=== PATIENT | male | born 1970 | race African-American/Black ===

== ENCOUNTER 2022-02-24 10:49 | Outpatient (REF) | payer MEDICARE, BC, SELFPAY ==
[2022-02-24 14:05] LABS: Hematocrit 41.9 % (42.0-52.0); Hemoglobin 14.5 g/dl (14.0-18.0); Mean Corpuscular HGB Conc 34.6 g/dl (31.0-36.0); Mean Corpuscular Hemoglobin 31.7 pg (27.0-33.0); Mean Corpuscular Volume 91.5 fL (80.0-98.0); Platelet Count 200 X10*3/uL (160-400); Red Blood Count 4.58 X10*6/uL (4.60-5.80); Red Cell Distribution Width 12.3 % (11.0-16.0)
[2022-02-24 14:24] LABS: Alanine Aminotransferase 27 U/L (0-40); Albumin Level 4.3 g/dL (3.5-5.0); Alkaline Phosphatase 68 U/L (39-117); Anion Gap 11 (12-20); Aspartate Amino Transferase 29 U/L (5-37); Bilirubin Total 0.6 mg/dL (0.0-1.0); Blood Urea Nitrogen 13 mg/dL (9-16); Calcium 10.1 mg/dL (8.4-10.2); Carbon Dioxide 29 mmol/L (22-29); Chloride 101 mmol/L (96-108); Cholesterol 218 mg/dL; Estimated Glomerular Filt Rate > 60; Glucose Fasting 97 mg/dL (60-99); HDL Cholesterol 56 mg/dL; LDL Cholesterol Calculated 148 mg/dl; Potassium 5.1 mmol/L (3.3-5.1); Sodium 136 mmol/L (135-145); Total Protein 8.7 g/dL (6.5-8.0); Triglycerides 74 mg/dL
[2022-02-24 14:40] LABS: Prostate Specific Antigen Scr 0.29 ng/mL (<0.05-4.0)
== END 2022-02-24 10:50 | disposition home or self-care (01) ==
LOC: HO.HMGCLDS 10:49
PROVIDERS: PCP Internal Medicine; Visit Provider Internal Medicine
DX: Z00.00 Encounter for general adult medical examination without abnormal findings (principal); Z12.5 Encounter for screening for malignant neoplasm of prostate
CPT/HCPCS: 36415; 80053; 80061; 84153; 85027

== ENCOUNTER → 2022-04-26 15:05 | Outpatient (BNVA) | payer MEDICARE, BC, SELFPAY | PROVIDERS: PCP Internal Medicine; Visit Provider Nurse Practitioner | DX: Z01.818 Encounter for other preprocedural examination (principal) | CPT/HCPCS: 99202 ==

== ENCOUNTER 2022-08-14 11:35 | Day surgery (SDC) | payer MEDICARE, BC, SELFPAY ==
[2022-08-08 13:55] VITALS: BMI 40.3
--- NOTE | 2022-08-11 08:35 | P.CONAN_ITS ---
Documented by User: Martine Man NP 08/11/22 08:36 HPI - Anesthesia Eval Consult details Narrative: 51yo M for Colonoscopy PMFSH Active Problems Active Problems: All Active Problems (Updated 04/27/22 @ 13:37 by AYLEEN Urban) Pre-op exam (Acute) Hyperlipidemia (Acute) Shoulder pain, left (Acute) Neck pain, chronic (Acute) Vitreous floaters of left eye (Acute) Annual physical exam (Acute) Obesity (Acute) Hx of foot surgery (Acute) Past Medical History Medical History (Updated 04/27/22 @ 13:37 by AYLEEN Urban) Annual physical exam Bilateral shoulder region arthritis Degenerative arthritis Hyperlipidemia Lumbar radiculopathy Neck pain, chronic Neuropathy Non-Hodgkin lymphoma in remission Obesity Overweight Shoulder pain, left Thoracic radiculopathy Vitreous floaters of left eye Family History Family History Father Diabetes mellitus Mother HTN (hypertension) Brother No problems noted. Brother No problems noted. Brother No problems noted. Brother No problems noted. Sister No problems noted. Surgical History Surgical History (Updated 04/26/22 @ 15:12 by ELLIOT Sotelo) History of esophagogastroduodenoscopy (EGD) Hx of foot surgery No pertinent past surgical history Social History Social History Cigarettes Per Day: 3 Years Smoked: 2 Use of substances other than those prescribed or required for medical reasons: No Advance Directives: No Advance Directives Information Provided: Yes Meds Allergies Allergy/AdvReac Type Severity Reaction Status Date / Time No Known Allergies Allergy Verified 04/26/22 15:11 Exam Exam Date and Time: August 11, 2022 0835 Height,Weight and Vital Signs: Height 5 ft 4 in Weight 106.594 kg Pertinent Lab Results Pertinent Lab Results: Laboratory Tests 02/24/22 02/24/22 10:58 10:58 WBC 5.0 Hgb 14.5 Hct 41.9 L Plt Count 200 Sodium 136 Potassium 5.1 Chloride 101 Carbon Dioxide 29 BUN 13 Creatinine 0.86 Assessment and Plan Assessment Anesthesia Assessment: Chart Reviewed Documented by User: Temitope Cheek MD 08/14/22 12:15 [facility] Past Medical History Medical History (Updated 04/27/22 @ 13:37 by AYLEEN Urban) Annual physical exam Bilateral shoulder region arthritis Degenerative arthritis Hyperlipidemia Lumbar radiculopathy Neck pain, chronic Neuropathy Non-Hodgkin lymphoma in remission Obesity Overweight Shoulder pain, left Thoracic radiculopathy Vitreous floaters of left eye Family History Family History Father Diabetes mellitus Mother HTN (hypertension) Brother No problems noted. Brother No problems noted. Brother No problems noted. Brother No problems noted. Sister No problems noted. Surgical History Surgical History (Updated 04/26/22 @ 15:12 by ELLIOT Sotelo) History of esophagogastroduodenoscopy (EGD) Hx of foot surgery No pertinent past surgical history History of Problems with Anesthesia: No Social History Social History Cigarettes Per Day: 3 Years Smoked: 2 Use of substances other than those prescribed or required for medical reasons: No Advance Directives: No Advance Directives Information Provided: Yes Meds Allergies Allergy/AdvReac Type Severity Reaction Status Date / Time No Known Allergies Allergy Verified 04/26/22 15:11 Exam Airway Mallampati Class: III TM Dist: >3cm Neck ROM: Full Loose/Missing/Broken Teeth: No Heart: RRR Lungs: CTA Assessment and Plan Assessment Anesthesia Assessment: Anesthesia Plan Discussed Final Anesthetic Review History of Problems with Anesthesia: No NPO: Yes ASA Class: III Final Preanesthetic Review: Meds/Allgs Chart Reviewed, Consent Obtained/Reviewed and Anes Risks/Benef Reviewed Patient Risk: Intermediate Procedure Risk: Low Anesthetic Plan Anesthetic Plan: MAC: Disposition: Standard PACU
[2022-08-14 12:10] VITALS: BP 142/80; PULSE 88; RESP 16; TEMP 36.2; O2SAT 96
[2022-08-14] MEDS: Lactated Ringers 1,000 ML 100 ML IVCONT (12:12)
--- NOTE | 2022-08-14 12:26 | MHC.SHP ---
Pre-Procedural Eval Section A Date of Service: 08/14/22 The patient is an INPATIENT: No The History & Physical has been completed within 30 days and I have reviewed it.: No Section B Chief Complaint: screening Details of Present Illness: COLON CANCER SCREEN Relevant Family History (Specify if Yes): No Present Medications: see Short Stay Collaborative assessment Medical History: Significant History (History of non-Hodgkin's lymphoma High cholesterol Lumbar cervical and thoracic radiculopathy Floaters Neuropathy) History of Previous Operations: Relevant previous surgery/procedure and date(s) (History of esophagogastroduodenoscopy (EGD) Hx of foot surgery No pertinent past surgical history) Allergies: Allergies Allergy/AdvReac Type Severity Reaction Status Date / Time No Known Allergies Allergy Verified 04/26/22 15:11 Review of Systems Sugical H&P ROS: Negative: Constitution, Cardiovascular, Respiratory and Gastrointestinal Exam Surgical H&P Exam: Normal: Heart, Normal: Lungs, Normal: Extremities and Normal: Abdomen Plan Diagnosis/Plan: Unchanged I have reviewed the history and physical and performed a pertinent physical examination on my patient. No changes have occurred unless specified.
--- NOTE | 2022-08-14 12:32 | PM.OP ---
Brief Operative Note Date of Service: 08/14/22 Pre-op diagnosis: COLON CANCER SCREENING Post-op diagnosis: other ( colon polyps, diverticulosis, hemorrhoids) Procedure: COLONOSCOPY TO CECUM WITH BIOPSIES AND SNARE POLYPECTOMY Surgeon: Harmony Chanel MD Anesthesia: MAC Was an Correctional Program Officer used for this Procedure?: Yes Correctional Program Officer: Loyda Gomez Estimated blood loss (mL): 0 Pathology: other (A. ascending colon polyp B. transverse colon polyp) Condition: stable Disposition: PACU
--- NOTE | 2022-08-14 12:32 | W.PM.OPN ---
Operative Note Operative Note Date of Service: 08/14/22 Narrative: Pre-op diagnosis: COLON CANCER SCREENING Post-op diagnosis:?other ( colon polyps, diverticulosis, hemorrhoids) Procedure: COLONOSCOPY TO CECUM WITH BIOPSIES AND SNARE POLYPECTOMY Surgeon: Harmony Chanel MD Anesthesia:?MAC COLONOSCOPY TILL CECUM WITH BIOPSIES AND SNARE POLYPECTOMY Consent: Indications for the procedure and potential complications of bleeding, perforation, reaction to medications and missed diagnosis were discussed with the patient and informed consent was obtained. Instrument: Olympus PCF H 190 L variable stiffness pediatric colonoscope Monitoring: Vital signs and clinical assessment, intermittent blood pressure monitoring, continuous EKG monitoring, Pulse oximetry and Carbon Dioxide monitoring were done throughout the procedure. Colon withdrawl time was 17 minutes. Procedure: The patient was placed in the left lateral decubitis position and pre-procedure medications were administered. After a digital rectal examination of the ano-rectum, the video colonoscope was inserted into the rectum and advanced through the colon to the cecum. The colonoscope was slowly withdrawn in a retrograde panoramic fashion and the colon mucosa was carefully examined including a retroflexed view of the rectum. Findings and interventions are described below. Procedure Difficulty: Without difficulty Findings: Terminal Ileum: Not evaluated Cecum: Normal Ascending Colon: A 3-4 mm sessile polyp in the proximal AC removed with a cold bx Transverse Colon: A 7-8 mm sessile polyp in the distal TC removed with a cold snare. Descending Colon: Moderate diverticulosis Sigmoid Colon: Moderate diverticulosis Rectum: Normal Ano-rectum: Moderate internal hemorrhoids Colon preparation: Good Impression and Post Procedure Diagnosis: Colonoscopy Findings: Two small polyps removed Moderate diverticulosis seen in the left colon Moderate hemorrhoids on retroflexed exam. Plan: Await pathology results Patient has an appointment on 08/29/22 in the GI Clinic with Char Hernandez NP. Repeat Colonoscopy interval based on path results - in 5 years if polyps are adenomatous and 10 years if polyps are hyperplastic. Above findings were reviewed with the patient and colon polyps and diverticulosis handouts were given in the discharge area
[2022-08-14 13:11] VITALS: BP 110/67; PULSE 86; RESP 16; TEMP 36.6; O2SAT 97
[2022-08-14 13:26] VITALS: BP 110/67; PULSE 77; RESP 16; TEMP 36.7; O2SAT 97
[2022-08-14 13:41] VITALS: BP 134/80; PULSE 82; RESP 15; TEMP 36.7; O2SAT 96
== END 2022-08-14 14:20 | disposition home or self-care (01) ==
PROVIDERS: PCP Internal Medicine; Visit Provider Internal Medicine Gastroenterology
PROC: 0DJD8ZZ Inspection of Lower Intestinal Tract, Via Natural or Artificial Opening Endoscopic (ICD-10-PCS; CPT 45378; principal; 2022-08-14 13:00)
DX: Z12.11 Encounter for screening for malignant neoplasm of colon (principal); D12.2 Benign neoplasm of ascending colon; K63.5 Polyp of colon; K57.30 Diverticulosis of large intestine without perforation or abscess without bleeding; K64.8 Other hemorrhoids; E78.00 Pure hypercholesterolemia, unspecified; Z85.72 Personal history of non-Hodgkin lymphomas
CPT/HCPCS: 45385; 45380; 88305

== ENCOUNTER → 2022-08-29 11:20 | Outpatient (BNVA) | payer MEDICARE, BC, SELFPAY | PROVIDERS: PCP Internal Medicine; Visit Provider Nurse Practitioner | DX: D12.2 Benign neoplasm of ascending colon (principal); K57.30 Diverticulosis of large intestine without perforation or abscess without bleeding; Z98.890 Other specified postprocedural states | CPT/HCPCS: 99212 ==

== ENCOUNTER 2023-05-23 14:22 | Outpatient (AMB) | payer MEDICARE, BC, SELFPAY ==
--- NOTE | 2023-05-23 14:23 | MHC.OFFWIV ---
Intake Vital Signs 05/23/23 14:27 Weight 140 lb BP 140/80 H Blood Pressure Location Lt brachial Position Sitting Pulse 77 Pulse Source Pulse Oximeter Temp 97.8 F Temp Source Temporal Artery Scan Pulse Oximetry (%) 97 Oxygen Delivery Method Room Air Intake Visit Reasons: EST/congested/SOB/body aches Intake Note: Patient here because he has been sick for about 1 month, has deep cough, coughing up a lot of phlegm, slight sob. Patient Tobacco Use Status: Never used Tobacco Allergies No Known Allergies Allergy (Verified 05/23/23 14:50) Medication List - Last Reconciled 05/23/23 by Quinton Sena MD ascorbic acid (vitamin C) ER (Vitamin C ER) 1,000 mg PO Q12H Do you need a note to return to daycare/school/sports/work: No HPI EST/congested/SOB/body aches HPI Details Patient presents for a sick visit. Reporting symptoms of sinus congestion, sore throat and difficulty swallowing. Low-grade fever. No family member is sick. No recent travel. Patient reports symptoms of malaise and fatigue. [facility] Medical History (Updated 05/23/23 @ 14:51 by Quinton Sena MD) Annual physical exam Bilateral shoulder region arthritis Degenerative arthritis History of corticosteroid therapy Hyperlipidemia Lumbar radiculopathy Neck pain, chronic Neuropathy Non-Hodgkin lymphoma in remission Obesity Overweight Shoulder pain, left Thoracic radiculopathy Vitreous floaters of left eye Surgical History H/O colonoscopy History of esophagogastroduodenoscopy (EGD) Hx of foot surgery No pertinent past surgical history Family History Father Diabetes mellitus Mother HTN (hypertension) Brother No problems noted. Brother No problems noted. Brother No problems noted. Brother No problems noted. Sister No problems noted. Social History Household Members: Spouse and Children Housing: House Patient Tobacco Use Status: Never used Tobacco Years Smoked: 2 service: No Current occupational status: retired Physical Exam Vital Signs: Last Vital Signs Temp 97.8 F 05/23/23 14:27 Pulse 77 05/23/23 14:27 BP 140/80 H 05/23/23 14:27 Pulse Ox 97 05/23/23 14:27 Oxygen Delivery Method Room Air 05/23/23 14:27 Const General: cooperative and healthy appearing Nutritional Appearance: well nourished Orientation/consciousness: patient oriented x3 Limitations: no limitations HEENT Head: Yes normal to inspection Eyes General: appearance normal, both eyes and all related structures Neck Neck: Yes normal visual inspection Chest Chest palpation & inspection: normal palpation of entire chest wall Resp Effort & Inspection: normal respiratory effort Neuro General: patient oriented x3 Assessment & Plan Assessment & Plan (1) Upper respiratory tract infection: Code(s): J06.9 - Acute upper respiratory infection, unspecified Plan: Antibiotics ordered. Increase fluid intake. Tylenol for aches and pains. If symptoms worsen, follow-up here for a recheck. Coding Level of Care Code Est Pt Level 3 (89307) Diagnoses Upper respiratory tract infection J06.9
[2023-05-23 14:27] VITALS: BP 140/80; PULSE 77; TEMP 36.6; O2SAT 97
== END 2023-05-23 14:49 | disposition home or self-care (01) ==
LOC: HO.HMGWI 14:22
PROVIDERS: PCP Internal Medicine; Visit Provider Internal Medicine
DX: J06.9 Acute upper respiratory infection, unspecified (principal)
CPT/HCPCS: 99213

== ENCOUNTER 2023-06-27 12:40 | Outpatient (AMB) | payer MEDICARE, BC, SELFPAY ==
[2023-06-27 12:41] VITALS: BP 114/72; PULSE 96; O2SAT 96; BMI 45.2
--- NOTE | 2023-06-27 12:41 | MHC.PC.OV ---
Vital Signs 06/27/23 12:41 Height 5 ft 1 in Weight 239 lb BMI 45.2 BP 114/72 Blood Pressure Location Rt brachial Position Sitting Pulse 96 Pulse Source Pulse Oximeter Pulse Oximetry (%) 96 Oxygen Delivery Method Room Air Intake Visit Reasons: Left shoulder pain/ pain in left hand Intake Note: Pt is here today for a sick visit. Pt c/o L hand pain and numbness in her fingers. Pt also c/o L shoulder pain. Allergies No Known Allergies Allergy (Verified 06/27/23 12:45) Medication List - Last Reconciled 06/27/23 by Ashley Arnett MD ascorbic acid (vitamin C) ER (Vitamin C ER) 1,000 mg PO Q12H Tobacco use date assessed: 06/27/23 Dental Screening Dental Screen Date: 06/27/23 Did you have a dental visit in the last 12 months?: No Did you have a dental problem in the last 6 months where you did not have access to dental care?: No Was dental information given to patient?: Patient declined HPI Left shoulder pain/ pain in left hand HPI Details Pt c/o chronic and persistent L shoulder pain worse when using it, lifting overhead, who caring heavily but also at night. Pt tried PT without relief. Patient was evaluated [facility] and told MRI showed a small tendon tear but no surgery was recommended. Patient would like to see a 2nd opinion. He reports intermittent asymmetrical arthralgia and small joints mainly hands lasting up to a day. 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 [facility] Medical History (Updated 06/27/23 @ 13:18 by Ashley Arnett MD) History of corticosteroid therapy Hyperlipidemia Shoulder pain, left Neck pain, chronic Vitreous floaters of left eye Annual physical exam Obesity Neuropathy Thoracic radiculopathy Overweight Non-Hodgkin lymphoma in remission Bilateral shoulder region arthritis Degenerative arthritis Lumbar radiculopathy Surgical History H/O colonoscopy History of esophagogastroduodenoscopy (EGD) Hx of foot surgery No pertinent past surgical history Family History (Updated 06/27/23 @ 12:48 by Marisa Bell [facility]) Father Diabetes mellitus Mother HTN (hypertension) Brother No problems noted. Brother No problems noted. Brother No problems noted. Brother No problems noted. Sister No problems noted. Social History Household Members: Spouse and Children Housing: House Patient Tobacco Use Status: Never used Tobacco Years Smoked: 2 e-Cigarette/Vaping Use: Never Used service: No Current occupational status: retired Cognitive needs: No Hearing needs: No Vision needs: No Review of Systems Const All systems reviewed & are unremarkable except as noted in HPI and below Reports no additional complaints Eyes Reports no additional complaints ENT Reports no additional complaints Card Reports no additional complaints Resp Reports no additional complaints GI Reports no additional complaints Physical exam (Primary Care) Vital Signs: Last Vital Signs Pulse 96 06/27/23 12:41 BP 114/72 06/27/23 12:41 Pulse Ox 96 06/27/23 12:41 Oxygen Delivery Method Room Air 06/27/23 12:41 BMI result Body Mass Index 45.2 Tobacco/Smoking Status: Tobacco use Status Tobacco use date assessed 06/27/23 06/27/23 12:48 Patient Tobacco Use Status Never used Tobacco 06/27/23 12:48 e-Cigarette/Vaping Use Never Used 06/27/23 12:48 Const General: no acute distress HENMT Head: Yes normal to inspection Neck Neck: Yes supple Resp Effort & Inspection: normal respiratory effort Auscultation: clear to auscultation bilaterally Cardio Rhythm: regular rhythm Heart sounds: S1 normal heart sound present and S2 normal heart sound present GI Palpation (GI): Soft to palpation Extrem Other: significantly decreased range of motion of the left shoulder, anterior and lateral aspect tenderness no soft tissue swelling.. There is no small hand joints swelling tenderness erythema or warmth General: Yes no clubbing, cyanosis or edema Assessment and Plan Assessment & Plan (1) Rotator cuff arthropathy of left shoulder: Code(s): M12.812 - Other specific arthropathies, not elsewhere classified, left shoulder Plan: Referred to the orthopedic for evaluation (2) Hyperlipidemia: Code(s): E78.5 - Hyperlipidemia, unspecified Plan: Return for fasting blood work including lipid profile (3) Annual physical exam: Code(s): Z00.00 - Encounter for general adult medical examination without abnormal findings (4) Arthralgia: Code(s): M25.50 - Pain in unspecified joint Plan: Check arthritis panel Orders: Orders Comprehensive [place]. Panel Fast Today E78.5 - Hyperlipidemia, unspecified, M12.812 - Other specific arthropathies, not elsewhere classified, left shoulder, M25.50 - Pain in unspecified joint, Z00.00 - Encounter for general adult medical examination without abnormal findings Rheumatoid Factor Today E78.5 - Hyperlipidemia, unspecified, M12.812 - Other specific arthropathies, not elsewhere classified, left shoulder, M25.50 - Pain in unspecified joint, Z00.00 - Encounter for general adult medical examination without abnormal findings Lipid Panel Today E78.5 - Hyperlipidemia, unspecified, M12.812 - Other specific arthropathies, not elsewhere classified, left shoulder, M25.50 - Pain in unspecified joint, Z00.00 - Encounter for general adult medical examination without abnormal findings PSA,Total (Free>4and<10) Today E78.5 - Hyperlipidemia, unspecified, M12.812 - Other specific arthropathies, not elsewhere classified, left shoulder, M25.50 - Pain in unspecified joint, Z00.00 - Encounter for general adult medical examination without abnormal findings Complete Blood Count Auto Diff Today E78.5 - Hyperlipidemia, unspecified, M12.812 - Other specific arthropathies, not elsewhere classified, left shoulder, M25.50 - Pain in unspecified joint, Z00.00 - Encounter for general adult medical examination without abnormal findings JOVI Reflex Titer and Pattern Today E78.5 - Hyperlipidemia, unspecified, M12.812 - Other specific arthropathies, not elsewhere classified, left shoulder, M25.50 - Pain in unspecified joint, Z00.00 - Encounter for general adult medical examination without abnormal findings C Reactive Protein Today E78.5 - Hyperlipidemia, unspecified, M12.812 - Other specific arthropathies, not elsewhere classified, left shoulder, M25.50 - Pain in unspecified joint, Z00.00 - Encounter for general adult medical examination without abnormal findings Referrals Orthopedics Referral M12.812 - Other specific arthropathies, not elsewhere classified, left shoulder Coding Level of Care Code Est Pt Level 4 (10244) Diagnoses Rotator cuff arthropathy of left shoulder M12.812 Hyperlipidemia E78.5 Annual physical exam Z00.00 Arthralgia M25.50
== END 2023-06-27 13:49 | disposition home or self-care (01) ==
PROVIDERS: PCP Internal Medicine; Visit Provider Internal Medicine
DX: M12.812 Other specific arthropathies, not elsewhere classified, left shoulder (principal); E78.5 Hyperlipidemia, unspecified; Z00.00 Encounter for general adult medical examination without abnormal findings; M25.50 Pain in unspecified joint
CPT/HCPCS: 99214

== ENCOUNTER 2023-08-14 09:55 | Outpatient (REF) | payer MEDICARE, BC, SELFPAY ==
--- NOTE | ~2023-08-14 | XR_ITS ---
EXAMINATION: XR SHOULDER, LEFT CLINICAL INFORMATION: Left shoulder pain COMPARISON: 03/08/2022 and MRI from 10/19/2022 TECHNIQUE: AP external rotation, Grashey and axillary views of the left shoulder. FINDINGS: The bones and soft tissues are normal. No fracture. Glenohumeral and acromioclavicular alignment is anatomic with normal joint space. Minimal soft tissue calcifications adjacent to the greater tuberosity of left shoulder most likely calcified tendinopathy. XR/XR shoulder LT min 2V IMPRESSION: Left shoulder calcified tendinopathy
== END 2023-08-14 09:56 | disposition home or self-care (01) ==
LOC: HO.HOSX 09:55
PROVIDERS: Visit Provider Physician Assistant
DX: M75.112 Incomplete rotator cuff tear or rupture of left shoulder, not specified as traumatic (principal); S43.432A Superior glenoid labrum lesion of left shoulder, initial encounter
CPT/HCPCS: 73030; 99202

== ENCOUNTER 2023-08-14 11:04 | Outpatient (AMB) | payer MEDICARE, BC, SELFPAY ==
[2023-08-14 11:11] VITALS: BMI 45.2
--- NOTE | 2023-08-14 11:11 | A.OFFVIS_ITS ---
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 Patient reports ongoing pain for many years. Hx of surgery in both shoulders in [facility]. Hx of PT with relief. Hx of injections with mild relief. 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 The patient reports ongoing pain for many years. He states he has pain with raising his arm forward. He was seen at [facility] who referred him to physical therapy which helped him get his ROM back. He was prescribed Meloxicam and this gave him relief. It was suggested for him to move forward with surgery due to not being able to perform certain motions. He states he had an MRI and was told he had a partial tear in the rotator cuff. Patient has a surgical history of bilateral shoulder surgery at [facility]. Patient has a history of physical therapy with relief. Patient has a history of cortisone injection with mild relief. [facility] Medical History (Updated 08/14/23 @ 11:50 by Loyda Moran) History of corticosteroid therapy Hyperlipidemia Shoulder pain, left Neck pain, chronic Vitreous floaters of left eye Annual physical exam Obesity Neuropathy Thoracic radiculopathy Overweight Non-Hodgkin lymphoma in remission Bilateral shoulder region arthritis Degenerative arthritis Lumbar radiculopathy Surgical History H/O colonoscopy History of esophagogastroduodenoscopy (EGD) Hx of foot surgery No pertinent past surgical history Family History (Updated 06/27/23 @ 12:48 by Marisa Bell Yvrose) Father Diabetes mellitus Mother HTN (hypertension) Brother No problems noted. Brother No problems noted. Brother No problems noted. Brother No problems noted. Sister No problems noted. Social History Household Members: Spouse and Children Housing: House Patient Tobacco Use Status: Never used Tobacco Years Smoked: 2 e-Cigarette/Vaping Use: Never Used service: No Current occupational status: retired Cognitive needs: No Hearing needs: No Vision needs: No Review of Systems Const All systems reviewed & are unremarkable except as noted in HPI and below Physical Exam Vital Signs: BMI result Body Mass Index 45.2 Const General: cooperative and no acute distress Orientation/consciousness: patient oriented x3 Resp Effort & Inspection: normal respiratory effort and able to speak in complete sentences Cardio Peripheral pulses: Peripheral pulses 2+ throughout Skin General skin exam: no rashes or lesions noted Neuro General: patient oriented x3 Extrem Other: Left shoulder: Normal to inspection. No ecchymosis, erythema, or edema. Full shoulder ROM in all planes. Pain with cross-body reach. 4/5 strength with empty can. Negative drop arm. Positive O'Briens. NVI. Assessment & Plan Assessment & Plan (1) Partial thickness tear of left rotator cuff: Code(s): M75.112 - Incomplete rotator cuff tear or rupture of left shoulder, not specified as traumatic Qualifiers: Rotator cuff tear trauma status: unspecified whether traumatic Qualified Code(s): M75.112 - Incomplete rotator cuff tear or rupture of left shoulder, not specified as traumatic (2) Superior labrum owcvnhaf-mp-moegcxnrr (SLAP) tear of left shoulder: Code(s): S43.432A - Superior glenoid labrum lesion of left shoulder, initial encounter Plan Mr. Dave is a 52-year-old male who presents in the office today, as a new patient, for an evaluation of left shoulder pain. The patient reports ongoing pain for many years. He states he has pain with raising his arm forward. He was seen at [facility] who referred him to physical therapy which helped him get his ROM back. He was prescribed Meloxicam and this gave him relief. It was suggested for him to move forward with surgery due to not being able to perform certain motions. He states he had an MRI and was told he had a partial tear in the rotator cuff. Patient has a surgical history of bilateral shoulder surgery at [facility]. Patient has a history of physical therapy with relief. Patient has a history of cortisone injection with mild relief. The office will upload the patient?s MRI disc for office records. Which was available for my review today. Partial thickness rotator cuff tear, but it was significant for a slap tear. I have sent in a prescription for Meloxicam 15 mg PO daily. I would like for the patient to be further evaluated by Dr. Choe due to a possible labrum tear. Follow up will be with Dr. Choe for further evaluation, or sooner if needed. X-rays of the left shoulder which were obtained while in the office today and were reviewed by me, Pearl Fink PA-C, revealed no evidence of acute fracture or dislocation. Orders: Orders XR shoulder LT min 2V Today M25.519 - Pain in unspecified shoulder Medications: New meloxicam 15 mg PO DAILY 30 tabs 0RF 30 days Patient Instructions: Scribed for Pearl Fink PA-C by Loyda Moran director of medical review, on 08/14/2023 at 11:13 am, EST. Coding Level of Care Code New Pt Level 4 (08369) Diagnoses Incomplete tear of left rotator cuff, unspecified whether traumatic M75.112 Rotator cuff tear trauma status: unspecified whether traumatic Superior labrum [id number]-[id number]-ulqrpvmtd (SLAP) tear of left shoulder S43.432A
== END 2023-08-14 11:46 | disposition home or self-care (01) ==
PROVIDERS: PCP Internal Medicine; Visit Provider Physician Assistant
DX: M75.112 Incomplete rotator cuff tear or rupture of left shoulder, not specified as traumatic (principal); S43.432A Superior glenoid labrum lesion of left shoulder, initial encounter
CPT/HCPCS: 99204

== ENCOUNTER 2023-08-27 10:07 | Outpatient (AMB) | payer MEDICARE, BC, SELFPAY ==
[2023-08-27 10:19] VITALS: BMI 45.2
--- NOTE | 2023-08-27 10:19 | A.OFFVIS_ITS ---
Intake Vital Signs 08/27/23 10:19 Height 5 ft 1 in Weight 239 lb BMI 45.2 Intake Visit Reasons: OV-left shoulder pain-follow up Intake Note: Wilbert is a 52 year old left hand dominant male who presents today for a follow up of his left shoulder. He was last seen with who has question of labral tear. Patient reports that he took a fall about a year ago. he was having pain in the shoulder prior to the fall but the fall aggravated the pain. He is unable to get through his day without pain. He has tried PT and is frustrated that he is not improving. Allergies No Known Allergies Allergy (Verified 06/27/23 12:45) HPI OV-left shoulder pain-follow up HPI Details Wilbert is a 52 year old man who presents to discuss treatment for his left shoulder RTC & SLAP tears. He complains of pain with daily activity, worse with overhead activity, reaching motions, and at night. He says he has a hx of bilateral shoulder done at [facility] in the past, and he says he had good relief from his pain after surgery. He says in the last year he developed increased pain in his shoulder when he was trying to exercise at the gym. He starts with pain during push-up & pull-up activities. He was referred to [facility] for treatment, which he found somewhat helpful, but he continues to have pain. He has a hx of relief from steroid injections and PT in the past. 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 He has a hx of vertebral column resection to remove his cancer in ~2012. [facility] Medical History History of corticosteroid therapy Hyperlipidemia Shoulder pain, left Neck pain, chronic Vitreous floaters of left eye Annual physical exam Obesity Neuropathy Thoracic radiculopathy Overweight Non-Hodgkin lymphoma in remission Bilateral shoulder region arthritis Degenerative arthritis Lumbar radiculopathy Surgical History H/O colonoscopy History of esophagogastroduodenoscopy (EGD) Hx of foot surgery No pertinent past surgical history Family History Father Diabetes mellitus Mother HTN (hypertension) Brother No problems noted. Brother No problems noted. Brother No problems noted. Brother No problems noted. Sister No problems noted. Social History (Reviewed 08/27/23 @ 10:20 by Lolly Proctor [facility]) Household Members: Spouse and Children Housing: House Patient Tobacco Use Status: Never used Tobacco Years Smoked: 2 e-Cigarette/Vaping Use: Never Used service: No Current occupational status: retired Cognitive needs: No Hearing needs: No Vision needs: No Review of Systems Const All systems reviewed & are unremarkable except as noted in HPI and below Physical Exam Vital Signs: BMI result Body Mass Index 45.2 Const General: no acute distress, alert and awake Orientation/consciousness: patient oriented x3 HEENT Head: Yes normocephalic and Yes atraumatic Eyes EOM: EOMs intact bilaterally Resp Effort & Inspection: normal respiratory effort and able to speak in complete sentences Cardio Jugular venous distension: no JVD Skin General skin exam: turgor normal Rashes: no rashes Neuro General: patient oriented x3 Extrem Other: Left Shoulder: 35/90/130/S1 + Hawk's Pain with EC but no lifting Psych Appearance: grossly normal Affect: normal affect Attitude: cooperative Results Reviewed Results Reviewed: I personally reviewed relevant MR images Partial supraspinatus tear Possible SLAP II lesion at 12:00 Mild acromioclavicular osteoarthritis Assessment & Plan Assessment & Plan (1) Partial thickness tear of left rotator cuff: Code(s): M75.112 - Incomplete rotator cuff tear or rupture of left shoulder, not specified as traumatic Qualifiers: Rotator cuff tear trauma status: unspecified whether traumatic Qualified Code(s): M75.112 - Incomplete rotator cuff tear or rupture of left shoulder, not specified as traumatic Plan: This is a 52 year old man with a partial articular-sided RTC tear of his left shoulder, with a hx of left shoulder at [facility]. He has pain with daily activity, worse with overhead activity, reaching motions, heavy lifting, and at night. He is unable to exercise or be active as he would like due to his pain. He has a hx of some relief from conservative treatment options, but he would like a more permanent solution. I discussed his diagnosis and treatment options. I recommend a left shoulder RTC repair with possible biceps tenodesis. I discussed the risks, benefits, and alternatives including, but not limited to, the risk of pain, infection, stiffness, need for further surgery as well as potential medical complications such as blood clots, pulmonary embolism and cardiac complications. I discussed the recovery timeline and process as well as the importance of PT. Wilbert is a good candidate for this surgery, and he wishes to proceed with this decision. He will speak with Aleah to schedule this procedure. Plan Scribed for Tristan Choe MD by Moshe Ying, medical records custodian, on 08/27/23 at 10:35 AM, EST. Coding Level of Care Code Est Pt Level 4 (51526) Diagnoses Incomplete tear of left rotator cuff, unspecified whether traumatic M75.112 Rotator cuff tear trauma status: unspecified whether traumatic
== END 2023-08-27 10:59 | disposition home or self-care (01) ==
PROVIDERS: PCP Internal Medicine; Visit Provider Orthopaedic Surgery
DX: M75.112 Incomplete rotator cuff tear or rupture of left shoulder, not specified as traumatic (principal)
CPT/HCPCS: 99214

== ENCOUNTER → 2023-08-27 10:07 | Outpatient (BNVA) | payer MEDICARE, BC, SELFPAY | PROVIDERS: PCP Internal Medicine; Visit Provider Orthopaedic Surgery | DX: M75.112 Incomplete rotator cuff tear or rupture of left shoulder, not specified as traumatic (principal) | CPT/HCPCS: 99212 ==

== ENCOUNTER → 2023-09-27 09:26 | Outpatient (BNVA) | payer MEDICARE, BC, SELFPAY | PROVIDERS: PCP Internal Medicine; Visit Provider Physician Assistant ==

== ENCOUNTER 2023-10-10 08:46 | Day surgery (SDC) | payer MEDICARE, SELFPAY ==
[2023-10-04 15:29] VITALS: BMI 45.2
--- NOTE | 2023-10-09 08:40 | P.CONAN_ITS ---
Documented by User: Martine Man NP 10/09/23 08:43 HPI - Anesthesia Eval Consult details Narrative: 52yo M for Left Shoulder Rotator Cuff Repair, w/ possible bicep tenodesis PMFSH Active Problems Active Problems: All Active Problems (Updated 10/04/23 @ 15:20 by Bridget Shen RN) Superior labrum [id number] (SLAP) tear of left shoulder (Acute) Partial thickness tear of left rotator cuff (Acute) Arthralgia (Acute) Rotator cuff arthropathy of left shoulder (Acute) Upper respiratory tract infection (Acute) History of lymphoma (Acute) Bone lesion (Acute) Abdominal pain (Acute) Tubular adenoma of colon (Acute) Pre-op exam (Acute) Hyperlipidemia (Acute) Shoulder pain, left (Acute) Neck pain, chronic (Acute) Vitreous floaters of left eye (Acute) Annual physical exam (Acute) Obesity (Acute) Hx of foot surgery (Acute) Past Medical History Medical History History of corticosteroid therapy Hyperlipidemia Shoulder pain, left Neck pain, chronic Vitreous floaters of left eye Annual physical exam Obesity Neuropathy Thoracic radiculopathy Overweight Non-Hodgkin lymphoma in remission Bilateral shoulder region arthritis Degenerative arthritis Lumbar radiculopathy Family History Family History Father Diabetes mellitus Mother HTN (hypertension) Brother No problems noted. Brother No problems noted. Brother No problems noted. Brother No problems noted. Sister No problems noted. Surgical History Surgical History Hx of shoulder surgery History of back surgery H/O colonoscopy History of esophagogastroduodenoscopy (EGD) Hx of foot surgery History of Problems with Anesthesia: No Social History Social History Household Members: Spouse and Children Housing: House Patient Tobacco Use Status: Former Tobacco user Quit Date: 34 yrs ago Years Smoked: 2 e-Cigarette/Vaping Use: Never Used Use of substances other than those prescribed or required for medical reasons: No Are you DNR?: No Advance Directives: No Advance Directives Information Provided: Yes service: No Current occupational status: retired Cognitive needs: No Hearing needs: No Vision needs: No Meds Allergies Allergy/AdvReac Type Severity Reaction Status Date / Time No Known Allergies Allergy Verified 10/10/23 08:58 Home Medications Medication Instructions Recorded Confirmed Last Taken Type ascorbic acid (vitamin C) 1,000 mg 1,000 mg PO Q12H 12/11/22 10/04/23 Unknown History tablet,extended release (Vitamin C ER) cholecalciferol (vitamin D3) 50 50 mcg PO DAILY 09/27/23 10/04/23 Unknown History mcg (2,000 unit) capsule Exam Height,Weight and Vital Signs: Height 5 ft 1 in Weight 108.409 kg Assessment and Plan Assessment Anesthesia Assessment: Chart Reviewed Final Anesthetic Review History of Problems with Anesthesia: No Documented by User: Lolita Vizcarra MD 10/10/23 11:39 HPI - Anesthesia Eval Consult details Narrative: 52yo M for Left Shoulder Rotator Cuff Repair, w/ possible bicep tenodesis, preexistent neuropathy entire right half of body and left ulnar distribution left upper extremity. [facility] Past Medical History Medical History History of corticosteroid therapy Hyperlipidemia Shoulder pain, left Neck pain, chronic Vitreous floaters of left eye Annual physical exam Obesity Neuropathy Thoracic radiculopathy Overweight Non-Hodgkin lymphoma in remission Bilateral shoulder region arthritis Degenerative arthritis Lumbar radiculopathy Family History Family History Father Diabetes mellitus Mother HTN (hypertension) Brother No problems noted. Brother No problems noted. Brother No problems noted. Brother No problems noted. Sister No problems noted. Family history of problems with anesthesia: No Surgical History Surgical History Hx of shoulder surgery History of back surgery H/O colonoscopy History of esophagogastroduodenoscopy (EGD) Hx of foot surgery Social History Social History Household Members: Spouse and Children Housing: House Patient Tobacco Use Status: Former Tobacco user Quit Date: 34 yrs ago Years Smoked: 2 e-Cigarette/Vaping Use: Never Used Use of substances other than those prescribed or required for medical reasons: No Are you DNR?: No Advance Directives: No Advance Directives Information Provided: Yes service: No Current occupational status: retired Cognitive needs: No Hearing needs: No Vision needs: No Meds Allergies Allergy/AdvReac Type Severity Reaction Status Date / Time No Known Allergies Allergy Verified 10/10/23 08:58 Home Medications Medication Instructions Recorded Confirmed Last Taken Type ascorbic acid (vitamin C) 1,000 mg 1,000 mg PO Q12H 12/11/22 10/04/23 Unknown History tablet,extended release (Vitamin C ER) cholecalciferol (vitamin D3) 50 50 mcg PO DAILY 09/27/23 10/04/23 Unknown History mcg (2,000 unit) capsule Exam Airway Mallampati Class: II (right lower broken tooth) TM Dist: >3cm Neck ROM: Limited Loose/Missing/Broken Teeth: Yes (right lower broken tooth) Heart: rrr Lungs: cta Assessment and Plan Assessment Anesthesia Assessment: Anesthesia Plan Discussed Final Anesthetic Review Family History of Problems with Anesthesia: No NPO: Yes ASA Class: III Final Preanesthetic Review: No Changes in Pt Med Stat, Meds/Allgs Chart Reviewed, Consent Obtained/Reviewed and Anes Risks/Benef Reviewed Patient Risk: Intermediate Procedure Risk: Intermediate Anesthetic Plan Anesthetic Plan: GA and Regional Block Disposition: Standard PACU
[2023-10-10] VITALS (9 sets, daily range): BP systolic 99–143; BP diastolic 61–93; PULSE 84–91; RESP 16–18; TEMP 36.2–36.5; O2SAT 92–98; BMI 41.0
--- NOTE | 2023-10-10 13:06 | PM.OP ---
Brief Operative Note Date of Service: 10/10/23 Pre-op diagnosis: Left RTC tear and left SLAP tear Post-op diagnosis: same Procedure: Left RTC repair with biceps tenotomy Implants: Modi and Nephew knotless helacoil x 1 Surgeon: Tristan Choe MD Anesthesia: GETA and regional Was an Globe Mounter used for this Procedure?: Yes Globe Mounter: Pearl Fink Estimated blood loss (mL): 5 IV fluids (mL): 1,000 Pathology: none sent Condition: stable Disposition: PACU
--- NOTE | 2023-10-10 14:05 | W.PM.OPN ---
Operative Note Operative Note Date of Service: 10/10/23 Narrative: Date of Service: 10/10/23 Pre-op diagnosis: Left RTC tear and left SLAP tear Post-op diagnosis: same Procedure: Left RTC repair with biceps tenotomy Implants: Modi and Nephew knotless helacoil x 1 Surgeon: Tristan Choe MD Anesthesia: GETA and regional Was an Flat Screen Worker used for this Procedure?: Yes Flat Screen Worker: Pearl Fink Estimated blood loss (mL): 5 IV fluids (mL): 1,000 Pathology: none sent Condition: stable Disposition: PACU Procedure in detail: Patient was brought to the operating room and placed the the beach chair position. All bony prominences were well padded and the limb was prepped and draped in standard sterile fashion. A time out was called to identify proper site, proper procedure and proper surgeon. IV antibiotics per weight were administered. I began by making a posterolateral stab incision with a 15 blade. A blunt trochar was placed into the glenohumeral joint and I insufflated the joint with saline and a 30 degree arthroscope was placed. I established an outside- in anterior portal just distal to the biceps tendon. I then began my inspection of the glenohumeral joint. There was a degenerative SLAP tear at the biceps anchor ( Type 2). There were minimal cartilage changes at the inferior glenoid without humeral head changes. There was a high grade undersurface partial thickness utear of the supraspinatus. The subcapularis was intact. I debrided the loose cartilage of the glenoid and the degenerative labral tearing and performed a biceps tenotomy. I then removed the trochar and entered the subacromial space. A direct lateral portal was then established and I performed a bursectomy. The cuff was then examined. The supraspinatus undersurface tear had been tagged and the bursal side was thin and with minimal debridement it was clear that this was a high grade tear in near continuity with the undersurface tear. I then debrided the supraspinatus until there was a small full thickess tear (~5-7mm) I debrided the bare area and to bleeding bone andused two looped lugge tag type sutures jarred to one lateral anchor to repair the cuff. This re-approximated the cuff anatomy anatomically. Once I was satisfied with the repair final images were captured. I then performed a 5mm subacromial decompression. I removed all instrumentation. Portals were closed with nylon. Patient was placed in an abduction sling, extubated and brought to the recovery room in stable condition. There were no known complications.
== END 2023-10-10 15:31 | disposition home or self-care (01) ==
PROVIDERS: Visit Provider Orthopaedic Surgery
PROC: (CPT 29827; principal; 2023-10-10 10:50)
DX: M75.112 Incomplete rotator cuff tear or rupture of left shoulder, not specified as traumatic (principal); S43.432A Superior glenoid labrum lesion of left shoulder, initial encounter; X58.XXXA Exposure to other specified factors, initial encounter; Y93.9 Activity, unspecified; Y92.9 Unspecified place or not applicable; Y99.9 Unspecified external cause status; E78.5 Hyperlipidemia, unspecified; M54.14 Radiculopathy, thoracic region; G62.9 Polyneuropathy, unspecified; Z85.72 Personal history of non-Hodgkin lymphomas; E66.9 Obesity, unspecified; Z68.42 Body mass index [BMI] 45.0-49.9, adult; Z98.890 Other specified postprocedural states
CPT/HCPCS: 29827; 29822; 29826; C1713; J0131; J0171; J0665; J0690; J1100; J1885; J2250; J2371; J2405; J2704; J2795; J3010

== ENCOUNTER → 2023-10-10 08:46 | Outpatient (BNV) | payer MEDICARE, SELFPAY | PROVIDERS: Visit Provider Orthopaedic Surgery | DX: S43.432A Superior glenoid labrum lesion of left shoulder, initial encounter (principal); S46.012A Strain of muscle(s) and tendon(s) of the rotator cuff of left shoulder, initial encounter | CPT/HCPCS: 29827 ==

== ENCOUNTER 2023-10-16 11:01 | Outpatient (AMB) | payer MEDICARE, SELFPAY ==
--- NOTE | 2023-10-16 11:02 | A.OFFVIS_ITS ---
Intake Vital Signs 10/16/23 11:07 Height 5 ft 4 in Weight 235 lb BMI 40.3 Handedness Left Intake Visit Reasons: PO Left shoulder RTC repair 10/10/23 NE Intake Note: Wilbert is a 52 year old left hand dominant male who presents today for a post op appointment s/p left shoulder RTC repair 10/10/23 NE. Patient reports having some achiness in his shoulder, however he is healing well. He informed me that he hasn't started PT yet due to change of insurance but he will have an appointment soon. Allergies No Known Allergies Allergy (Verified 10/16/23 11:09) HPI PO Left shoulder RTC repair 10/10/23 NE HPI Details 52-year-old left hand dominant male who presents in the office today 6 days status post left rotator cuff repair with biceps tenotomy, which was performed on 10/10/[address] Choe. The patient reports some achiness in his left shoulder. He does state he feels it is healing well. He states he has not started physical therapy at this time due to a change in insurance, but he does have an appointment scheduled soon. [facility] Medical History History of corticosteroid therapy Hyperlipidemia Shoulder pain, left Neck pain, chronic Vitreous floaters of left eye Annual physical exam Obesity Neuropathy Thoracic radiculopathy Overweight Non-Hodgkin lymphoma in remission Bilateral shoulder region arthritis Degenerative arthritis Lumbar radiculopathy Surgical History Hx of shoulder surgery History of back surgery H/O colonoscopy History of esophagogastroduodenoscopy (EGD) Hx of foot surgery Family History Father Diabetes mellitus Mother HTN (hypertension) Brother No problems noted. Brother No problems noted. Brother No problems noted. Brother No problems noted. Sister No problems noted. Social History Household Members: Spouse and Children Housing: House Patient Tobacco Use Status: Former Tobacco user Quit Date: 34 yrs ago Years Smoked: 2 e-Cigarette/Vaping Use: Never Used service: No Current occupational status: retired Cognitive needs: No Hearing needs: No Vision needs: No Review of Systems Const All systems reviewed & are unremarkable except as noted in HPI and below Physical Exam Vital Signs: BMI result Body Mass Index 40.3 Const General: cooperative, healthy appearing and no acute distress Resp Effort & Inspection: normal respiratory effort and able to speak in complete sentences Cardio Rate: regular rate Peripheral pulses: Peripheral pulses 2+ throughout GI Palpation (GI): Soft to palpation Skin Lesions: no lesions Rashes: no rashes Extrem Other: Left shoulder: Incision site is clean, dry, and intact. Suture intact. No surrounding erythema or drainage. No signs of infection. Forward flexion and abduction to 45 degrees. External rotation to neutral. NVI. Assessment & Plan Assessment & Plan (1) Partial thickness tear of left rotator cuff: Comment: Left rotator cuff repair with biceps tenotomy 10/10/2023 Dr. Tristan Choe Code(s): M75.112 - Incomplete rotator cuff tear or rupture of left shoulder, not specified as traumatic Qualifiers: Rotator cuff tear trauma status: unspecified whether traumatic Qualified Code(s): M75.112 - Incomplete rotator cuff tear or rupture of left shoulder, not specified as traumatic Plan Mr. Dave is a 52-year-old left hand dominant male who presents in the office today 6 days status post left rotator cuff repair with biceps tenotomy, which was performed on 10/10/[address] Choe. The patient reports some achiness in his left shoulder. He does state he feels it is healing well. He states he has not started physical therapy at this time due to a change in insurance, but he does have an appointment scheduled soon. Sutures were removed and steri-stripes were applied while in the office today. He will remain in the sling for 6 weeks. The patient is currently switching insurance and needs a PCP appointment for a referral to physical therapy postoperatively. He has an appointment for Sunday10/22/2023. I reached out to physical therapy who was available to see the patient today to show him some basic at home exercises to work on until he his able to attend formal therapy. He will call the office as soon as he sees his PCP and we can help to reach out to physical therapy to help get him scheduled. Follow up will be in [address] Choe, or sooner if needed. Patient Instructions: Scribed for Pearl Fink PA-C by Loyda Moran, medical technologist prn, on 10/12/2023 at 11:11 am, EST. Coding Level of Care Code Global (11908) Diagnoses Incomplete tear of left rotator cuff, unspecified whether traumatic M75.112 Rotator cuff tear trauma status: unspecified whether traumatic
[2023-10-16 11:07] VITALS: BMI 40.3
== END 2023-10-16 11:37 | disposition home or self-care (01) ==
PROVIDERS: PCP Internal Medicine; Visit Provider Physician Assistant
DX: M75.112 Incomplete rotator cuff tear or rupture of left shoulder, not specified as traumatic (principal)
CPT/HCPCS: 99024

== ENCOUNTER → 2023-10-16 11:01 | Outpatient (BNVA) | payer MEDICARE, SELFPAY | PROVIDERS: PCP Internal Medicine; Visit Provider Physician Assistant | DX: M75.112 Incomplete rotator cuff tear or rupture of left shoulder, not specified as traumatic (principal) | CPT/HCPCS: 99212 ==

== ENCOUNTER 2023-11-15 09:23 | Outpatient (AMB) | payer MEDICARE, SELFPAY ==
--- NOTE | 2023-11-15 09:26 | A.OFFVIS_ITS ---
Intake Vital Signs 11/15/23 09:27 Height 5 ft 4 in Weight 235 lb BMI 40.3 Intake Visit Reasons: PO Left shoulder RTC repair 10/10/23 NE Intake Note: Wilbert is a 52 year old left hand dominant male who presents today for a post op appointment s/p left shoulder RTC repair 10/10/23 NE. Patient reports that he is doing well, he is still struggling with rom. He is working with physical therapy. His pain is worse at night but is improving Allergies No Known Allergies Allergy (Verified 10/16/23 11:09) HPI PO Left shoulder RTC repair 10/10/23 NE HPI Details Wilbert is a 52 year old man who presents ~5 weeks S/P left RTC repair with biceps tenotomy. He says he is doing well overall and has been working with PT. He reports having difficulty with limited ROM, and continues to have pain, especially at night. He says his pain is improving with time however. [facility] Medical History History of corticosteroid therapy Hyperlipidemia Shoulder pain, left Neck pain, chronic Vitreous floaters of left eye Annual physical exam Obesity Neuropathy Thoracic radiculopathy Overweight Non-Hodgkin lymphoma in remission Bilateral shoulder region arthritis Degenerative arthritis Lumbar radiculopathy Surgical History Hx of shoulder surgery History of back surgery H/O colonoscopy History of esophagogastroduodenoscopy (EGD) Hx of foot surgery Family History Father Diabetes mellitus Mother HTN (hypertension) Brother No problems noted. Brother No problems noted. Brother No problems noted. Brother No problems noted. Sister No problems noted. Social History Household Members: Spouse and Children Housing: House Patient Tobacco Use Status: Former Tobacco user Quit Date: 34 yrs ago Years Smoked: 2 e-Cigarette/Vaping Use: Never Used service: No Current occupational status: retired Cognitive needs: No Hearing needs: No Vision needs: No Review of Systems Const All systems reviewed & are unremarkable except as noted in HPI and below Physical Exam Vital Signs: BMI result Body Mass Index 40.3 Const General: no acute distress, alert and awake Orientation/consciousness: patient oriented x3 HEENT Head: Yes normocephalic and Yes atraumatic Eyes EOM: EOMs intact bilaterally Resp Effort & Inspection: normal respiratory effort and able to speak in complete sentences Cardio Jugular venous distension: no JVD Skin General skin exam: turgor normal Rashes: no rashes Neuro General: patient oriented x3 Extrem Other: inc c/d/i scapular recutiment with abduction ER to 40 Psych Appearance: grossly normal Affect: normal affect Attitude: cooperative Assessment & Plan Assessment & Plan (1) S/P rotator cuff repair: Code(s): Z98.890 - Other specified postprocedural states Plan: Doing well. f/u 6 weeks Small RTC repair protocol Plan Prepared for Tristan Choe MD by Moshe Ying, medical assistant, on 11/15/23 at 9:31 AM, EST. Coding Level of Care Code Global (32759) Diagnoses S/P rotator cuff repair Z98.890
[2023-11-15 09:27] VITALS: BMI 40.3
== END 2023-11-15 09:43 | disposition home or self-care (01) ==
PROVIDERS: PCP Internal Medicine; Visit Provider Orthopaedic Surgery
DX: Z98.890 Other specified postprocedural states (principal)
CPT/HCPCS: 99024

== ENCOUNTER → 2023-11-15 09:23 | Outpatient (BNVA) | payer MEDICARE, SELFPAY | PROVIDERS: PCP Internal Medicine; Visit Provider Orthopaedic Surgery | DX: Z98.890 Other specified postprocedural states (principal) | CPT/HCPCS: 99212 ==

== ENCOUNTER 2023-12-11 13:00 | Outpatient (RCR) | payer MEDICARE, SELFPAY ==
--- NOTE | 2024-01-25 08:38 | MHC.PT.DC ---
[facility] [place] [facility] [place] [facility] [place] [facility] [address] Leela Dow [address] [phone] F: [phone] F: [phone] F: [phone] F: [phone] Physical Therapy Discharge Report Diagnosis: status post left rotator cuff repair with biceps tenotomy, which was performed on 10/10/2023 Date of Surgery: 10/10/2023 Date of Evaluation: 10/25/23 Date of Discharge: 01/25/24 Treatments to Date: 9 Cancellations to Date: No Shows to Date: Discharge Status: Achieved Goals Independent with HEP Patient Elected to Stop Discharge Summary: Tenzin had been an active participant in his therapy in and out of the clinic. His chart had been left open until after his follow up though Pt did not need to return to therapy. Last treatment note below. 12/10/22: Pt is 9 weeks from surgery: AROM/ MMT: Flexion 170 Deg 4/5; ABD 162 Deg MMT 4/5; IR to T8 4+/5; ER to T 3 MMT 4-/5. MMT painless; Pt will communicate with PT Re. continuing therapy in the next 1-2 visits as he reports high co-pay and has MD f/u in 2 weeks. Good chico for progressed overhead activities. Electronically signed by: Alex Diaz PT. Please sign and return to therapist. Thank you for your referral.
== END 2024-01-25 08:39 | disposition home or self-care (01) ==
LOC: HO.PT 13:00
PROVIDERS: PCP Internal Medicine; Visit Provider Physician Assistant
DX: M75.112 Incomplete rotator cuff tear or rupture of left shoulder, not specified as traumatic (principal)
CPT/HCPCS: 97110; 97140; 97161; 97530

== ENCOUNTER 2023-12-27 09:36 | Outpatient (AMB) | payer MEDICARE, SELFPAY ==
[2023-12-27 09:39] VITALS: BMI 40.3
--- NOTE | 2023-12-27 09:39 | MHC.OFFVIS ---
Intake Vital Signs 12/27/23 09:39 Height 5 ft 4 in Weight 235 lb BMI 40.3 Intake Visit Reasons: PO-Left shoulder RTC repair 10/10/23 NE Intake Note: Wilbert is a 52 year old left hand dominant male who presents today for a post op appointment s/p left shoulder RTC repair 10/10/23 NE. Patient reports that he is doing well he does still have pain with ROM. He works with physical therapy which has been very helpful, particularly passive ROM/manipulation/massage with them however he cannot afford physical therapy with his high copay. Allergies No Known Allergies Allergy (Verified 10/16/23 11:09) HPI PO-Left shoulder RTC repair 10/10/23 NE HPI Details Wilbert is a 52 year old left hand dominant male who presents today for a post op appointment s/p left shoulder RTC repair 10/10/23 NE. Patient reports that he is doing well he does still have pain with ROM. He works with physical therapy which has been very helpful, particularly passive ROM/manipulation/massage with them however he cannot afford physical therapy with his high copay. [facility] Medical History History of corticosteroid therapy Hyperlipidemia Shoulder pain, left Neck pain, chronic Vitreous floaters of left eye Annual physical exam Obesity Neuropathy Thoracic radiculopathy Overweight Non-Hodgkin lymphoma in remission Bilateral shoulder region arthritis Degenerative arthritis Lumbar radiculopathy Surgical History Hx of shoulder surgery History of back surgery H/O colonoscopy History of esophagogastroduodenoscopy (EGD) Hx of foot surgery Family History Father Diabetes mellitus Mother HTN (hypertension) Brother No problems noted. Brother No problems noted. Brother No problems noted. Brother No problems noted. Sister No problems noted. Social History Household Members: Spouse and Children Housing: House Patient Tobacco Use Status: Former Tobacco user Quit Date: 34 yrs ago Years Smoked: 2 e-Cigarette/Vaping Use: Never Used service: No Current occupational status: retired Cognitive needs: No Hearing needs: No Vision needs: No Physical Exam Vital Signs: BMI result Body Mass Index 40.3 Extrem Other: Full range of motion with internal rotation to L1 bilaterally Negative empty can No pain with overhead reaching Assessment & Plan Assessment & Plan (1) S/P rotator cuff repair: Code(s): Z98.890 - Other specified postprocedural states Plan: Doing very well status post rotator cuff repair. Continue activity as tolerated. I would avoid heavy overhead lifting but he is doing excellent and there are no formal restrictions. Coding Level of Care Code Global (79304) Diagnoses S/P rotator cuff repair Z98.890
== END 2023-12-27 10:05 | disposition home or self-care (01) ==
PROVIDERS: PCP Internal Medicine; Visit Provider Orthopaedic Surgery
DX: Z98.890 Other specified postprocedural states (principal)
CPT/HCPCS: 99024

== ENCOUNTER → 2023-12-27 09:36 | Outpatient (BNVA) | payer MEDICARE, SELFPAY | PROVIDERS: PCP Internal Medicine; Visit Provider Orthopaedic Surgery | DX: M25.512 Pain in left shoulder (principal); Z47.89 Encounter for other orthopedic aftercare; Z98.890 Other specified postprocedural states | CPT/HCPCS: 99212 ==

== ENCOUNTER 2025-05-21 15:05 | Outpatient (AMB) | payer BC, MEDICARE, SELFPAY ==
[2025-05-21 15:07] VITALS: BP 140/96; PULSE 99; RESP 18; TEMP 36.1; O2SAT 97; BMI 40.5
--- NOTE | 2025-05-21 15:07 | MHC.PC.OV ---
Vital Signs 05/21/25 15:07 05/21/25 15:41 Height 5 ft 4 in Weight 236 lb BMI 40.5 BP 140/96 H 148/82 H Blood Pressure Location Lt brachial Lt brachial Position Sitting Sitting Respiration 18 Pulse 99 Pulse Source Pulse Oximeter Temp 97 F Temp Source Temporal Artery Scan Pulse Oximetry (%) 97 Oxygen Delivery Method Room Air Intake Visit Reasons: [facility] Allergies No Known Allergies Allergy (Verified 05/21/25 15:20) Medication List - Last Reconciled 05/21/25 by VICTOR MANUEL Stewart ascorbic acid (vitamin C) ER (Vitamin C ER) 1,000 mg PO Q12H cholecalciferol (vitamin D3) 50 mcg PO DAILY meloxicam 15 mg PO DAILY Tobacco use date assessed: 05/21/25 Dental Screening Dental Screen Date: 05/21/25 Did you have a dental visit in the last 12 months?: No Did you have a dental problem in the last 6 months where you did not have access to dental care?: No Was dental information given to patient?: No HPI [facility] HPI Details Previous PCP: Dr. [facility] Ramirez Last visit: 2022 Last PE: 2023, The practice closed; [place] Specialist: Patient is not currently seen in his specialist. Saw orthopedics and neuro spine in the past OBGYN: Past medical history: Vertebrectomy T11, reconstruction fusion with inner body and lateral plate implants T10 to T12 by Dr. Metz in 2012 at [facility] Medications: Family HX: Problem: The patient is a 54-year-old male presenting to transition care from Dr. [facility] Ramirez. He is presenting with concerns of chronic lower back pain and hypertension management. 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 The tumor was surgically removed, and the patient underwent chemotherapy and radiation therapy. The patient has been in remission since the treatment. The patient experiences chronic lower back pain, which began approximately two months ago after an awkward landing. The pain is described as sharp and shooting, exacerbated by certain movements and positions, particularly when lying down. The patient has a history of back surgery in 2013, where a vertebra and two discs were removed and fused with metal. The patient has a history of hypertension, with a recent blood pressure reading of 140/96 mmHg. The patient attributes the elevated blood pressure to stress related to his daughter's upcoming wedding. The patient reports a history of hyperlipidemia, with previous lab results indicating elevated LDL cholesterol levels. The patient is aware of the need to monitor cholesterol levels and is due for updated lab work. The patient experiences symptoms consistent with allergic rhinitis, including nasal congestion and postnasal drip, particularly in the mornings. The patient has not been taking any specific medication for allergies but is considering [id number] options. The patient recently completed a Cologuard test for colon cancer screening, which returned normal results. The patient has a history of colonoscopy with polyp removal and is aware of the need for regular screenings. [facility] Medical History (Updated 05/24/25 @ 00:37 by VICTOR MANUEL Stewart) Fusion of spine of thoracic region History of corticosteroid therapy Hyperlipidemia Shoulder pain, left Neck pain, chronic Vitreous floaters of left eye Annual physical exam Obesity Neuropathy Thoracic radiculopathy Overweight Non-Hodgkin lymphoma in remission Bilateral shoulder region arthritis Degenerative arthritis Lumbar radiculopathy Surgical History Hx of shoulder surgery History of back surgery H/O colonoscopy History of esophagogastroduodenoscopy (EGD) Hx of foot surgery Family History Father Diabetes mellitus Mother HTN (hypertension) Brother No problems noted. Brother No problems noted. Brother No problems noted. Brother No problems noted. Sister No problems noted. Social History Household Members: Spouse and Children Housing: House Patient Tobacco Use Status: Former Tobacco user Years Smoked: 2 e-Cigarette/Vaping Use: Never Used service: No Current occupational status: retired Cognitive needs: No Hearing needs: No Vision needs: No Questionnaire PHQ-9 Over the last 2 weeks, how often have you been bothered by any of the following problems? 1. Little interest or pleasure in doing things: several days 2. Feeling down, depressed, or hopeless: several days 3. Trouble falling or staying asleep, or sleeping too much: several days 4. Feeling tired or having little energy: several days 5. Poor appetite or overeating: several days 6. Feeling bad about yourself - or that you are a failure or have let yourself or your family down: several days 7. Trouble concentrating on things, such as reading the newspaper or watching television: several days 8. Moving or speaking so slowly that other people could have noticed. Or the opposite - being so fidgety or restless that you have been moving around a lot more than usual: several days 9. Thoughts that you would be better off or of hurting yourself in some way: not at all Total score: 8 Depression Screening Interpretation: Positive Depression Screening Done: Yes 96886 - PHQ-9 Billing: Yes Source: Developed by Drs. Chris Ortiz, Natalya Dexter, Rome West and colleagues, with an educational goyo from [employer]. Thrive Questionnaire Date Thrive assessed: 05/21/25 I am a: Patient What is your living situation today?: I have a steady place to live Within the past 12 months, did the food you bought not last and you didn't have the money to get more?: Sometimes True Within the past 12 months, did you worry whether your food would run out before you got money to buy more?: Sometimes True Do you have trouble paying for medicines?: No Do you have trouble getting transportation to medical appointments?: No Do you have trouble paying your heating and electricity bill?: Yes Do you have trouble taking care of your child, family member or friend?: No Do you have trouble with day-to-day activities such as bathing, preparing meals, shopping, managing finances, etc.?: I choose not to answer this question Are you currently unemployed and looking for a job?: No Are you interested in more education?: I choose not to answer this question Please select the resources that you would like help with: None Currently or been in a relationship where the following occur: No concerns reported THRIVE Score: 3 AUDIT C Alcohol Use Questionnaire (AUDIT-C) 1. How often do you have a drink containing alcohol?: Monthly or less 2. How many drinks containing alcohol do you have on a typical day when you are drinking?: 3 or 4 3. How often do you have six or more drinks on one occasion?: Never Total Score: 2 AVELINA-7 AMB Questionnaire AVELINA-7 Date AVELINA - 7 assessed: 05/21/25 Feeling nervous, anxious, or on edge: 1 = Several days Not being able to stop or control worryin = Several days Worrying too much about different things: 1 = Several days Trouble relaxin = Several days Being so restless that it is hard to sit still: 1 = Several days Becoming easily annoyed or irritable: 1 = Several days Feeling afraid as if something awful might happen: 1 = Several days Total AVELINA-7 score (0-4 normal; 5-9 mild; 10-14 moderate; 15-21 severe): 7 Source: Developed by Drs. Chris Ortiz, Natalya Dexter, Rome West and colleagues, with an educational goyo from [employer]. AVELINA-7 Assessment Billing AVELINA-7 Assessment Tool: AVELINA-7 Assessment 81622 Review of Systems Const Denies headache(s) Eyes Denies loss of vision ENT Denies vertigo, Denies dizziness, Denies headache(s), Reports nasal congestion, Reports post nasal drip and Denies sore throat Card Denies chest pain, Denies leg edema and Denies lightheadedness Resp Denies cough, Denies hemoptysis and Denies wheezing GI Denies abdominal pain, Denies melena, Denies constipation, Denies diarrhea and Denies vomiting Denies dysuria, Denies urinary frequency and Denies urinary urgency Musc Reports back pain (mid to lower back pain), Denies arthralgias, Denies joint swelling, Denies numbness and Denies tingling Neuro Denies Abnormal speech present, Denies behavioral changes, Denies vertigo, Denies dizziness, Denies headache(s), Denies loss of vision, Denies memory loss, Denies numbness and Denies tingling Psych Denies anxiety, Denies behavioral changes, Denies depression, Denies memory loss and Denies panic attacks Chaz/Lymph Denies easy bleeding and Denies easy bruising Aller/Immun Denies wheezing Physical exam (Primary Care) Vital Signs: Last Vital Signs Temp 97 F 05/21/25 15:07 Pulse 99 05/21/25 15:07 Resp 18 05/21/25 15:07 BP 148/82 H 05/21/25 15:41 Pulse Ox 97 05/21/25 15:07 Oxygen Delivery Method Room Air 05/21/25 15:07 BMI result Body Mass Index 40.5 Tobacco/Smoking Status: Tobacco use Status Tobacco use date assessed 05/21/25 05/21/25 15:13 Patient Tobacco Use Status Former Tobacco user 05/21/25 15:13 e-Cigarette/Vaping Use Never Used 05/21/25 15:13 PHQ-9: PHQ-9 Score PHQ-9: Total score 8 05/21/25 15:29 Depression Screening Interpretation: Positive Thrive Assessment: Date of Thrive Assessment Date Thrive assessed 05/21/25 05/21/25 15:13 Currently or been in a relationship where the following occur: No concerns reported Const General: healthy appearing, no acute distress, alert and awake Nutritional Appearance: well nourished Orientation/consciousness: oriented to person, oriented to place and oriented to time HENMT Ears: TM's normal bilaterally General nose exam: Abnormal mucous membranes and turbinates present erythematous bilateral Eyes Conjunctivae: conjunctivae normal Sclerae: sclerae normal Pupils: Equal, round and reactive pupils present Neck Neck: Yes no lymphadenopathy and Yes no JVD Thyroid: Thyroid normal Carotids: no bruits Resp Effort & Inspection: normal respiratory effort and not tachypneic Auscultation: no crackles, no rales, no rhonchi and no wheezes Cardio Rate: regular rate Rhythm: regular rhythm Heart sounds: no murmurs and normal S1 and S2 GI Inspection: Yes obesity Palpation (GI): Soft to palpation, nontender, no hepatomegaly and no splenomegaly Auscultation: normal bowel sounds General: Yes no CVA tenderness Back/Spine/Pelvis Back: no CVA tenderness Cervical Spine: No Cervical spine tenderness Thoracic/Lumbar Spine: straight leg raise negative bilaterally, thoracic spinal tenderness and No lumbar spinal tenderness Skin General skin exam: no rashes or lesions noted and dry skin Neuro General: oriented to person, oriented to place and oriented to time Cranial nerves: Yes Equal, round and reactive pupils present Speech: No Abnormal speech present Gait exam (Neuro): Normal gait present Motor exam (neuro): no tremor noted Extrem Right upper extremity: full ROM Left upper extremity: full ROM Right lower extremity: full ROM; no edema Left lower extremity: full ROM; no edema Psych Mental Status: mental status grossly normal Speech and movement: Normal speech and movement present Affect: normal affect Attitude: cooperative Thought process: Normal thought process present Coding Level of Care Code Est Pt Level 4 (57305) Diagnoses Acute back pain, unspecified back location, unspecified back pain laterality M54.9 Back pain location: back pain in unspecified location Chronicity: acute Back pain laterality: unspecified Allergic rhinitis, unspecified seasonality, unspecified trigger J30.9 Allergic rhinitis trigger: unspecified Allergic rhinitis seasonality: unspecified Hypertension, unspecified type I10 Hypertension type: unspecified Fusion of spine of thoracic region M43.24 Additional Codes PHQ-9 - 14144 - PHQ-9 Billing: Yes ([id number]) AVELINA-7 Assessment Billing - AVELINA-7 Assessment Tool: AVELINA-7 Assessment 78292 ([id number]) Time Spent (min) 41 Assessment & Plan Assessment & Plan (1) Back pain: Code(s): M54.9 - Dorsalgia, unspecified Category: Medical Qualifiers: Back pain location: back pain in unspecified location Chronicity: acute Back pain laterality: unspecified Qualified Code(s): M54.9 - Dorsalgia, unspecified Plan: The patient reports stepping down wrong and immediately felt pain in his back. Patient describes this as his lower back but points towards his mid back area towards the left. Patient had a vertebrectomy and reconstruction fusion with inner body and lateral plate implants T10-T12 on October of [address] Metz at [facility]. The patient is concerned that his back pain might be related possible hardware displacement. Will order a CT of the thoracic spine. Lidocaine patch ordered. Patient was using meloxicam prior. We will obtain labs 1st to assess kidney function. (2) Allergic rhinitis: Code(s): J30.9 - Allergic rhinitis, unspecified Category: Medical Qualifiers: Allergic rhinitis trigger: unspecified Allergic rhinitis seasonality: unspecified Qualified Code(s): J30.9 - Allergic rhinitis, unspecified Plan: Limit exposure to allergens Air purifiers and dust filters Air conditioner in house, especially where sleeping Encouraged ieza-phe-xkzridh antihistamines such as Claritin or Zyrtec and is prescribed Flonase nasal spray to manage symptoms. (3) High blood pressure: Code(s): I10 - Essential (primary) hypertension Category: Medical Qualifiers: Hypertension type: unspecified Qualified Code(s): I10 - Essential (primary) hypertension Plan: Blood pressure slightly elevated in office. Patient reports that his daughter is getting and he is under increased stress. Encouraged low-salt diet, adequate fluid hydration and limit alcohol and coffee. (4) Fusion of spine of thoracic region: Code(s): M43.24 - Fusion of spine, thoracic region Category: Medical Plan: The patient had non-Hodgkin in the spine that had to be removed. Status post Right thoracotomy exposure, vertebrectomy T11, reconstruction fusion with inner body and lateral plate implants T10-T12 Orders: Orders Lipid Panel 05/21/25 E66.9 - Obesity, unspecified, E78.5 - Hyperlipidemia, unspecified, Z76.89 - Persons encountering health services in other specified circumstances TSH reflex Free T4 05/21/25 E66.9 - Obesity, unspecified, E78.5 - Hyperlipidemia, unspecified, Z76.89 - Persons encountering health services in other specified circumstances Complete Blood Count Auto Diff 05/21/25 E66. - Obesity, unspecified, E78.5 - Hyperlipidemia, unspecified, Z76.89 - Persons encountering health services in other specified circumstances Comprehensive [place]. Panel Fast 05/21/25 E66.9 - Obesity, unspecified, E78.5 - Hyperlipidemia, unspecified, Z76.89 - Persons encountering health services in other specified circumstances UA CC w/rflx Micro + Cult 05/21/25.9 - Obesity, unspecified, E78.5 - Hyperlipidemia, unspecified, Z76.89 - Persons encountering health services in other specified circumstances PSA,Total (Free>4and<10) 05/21/25 E66.9 - Obesity, unspecified, E78.5 - Hyperlipidemia, unspecified, Z76.89 - Persons encountering health services in other specified circumstances Vitamin D 25-OH Total 05/21/25 E66.9 - Obesity, unspecified, E78.5 - Hyperlipidemia, unspecified, Z76.89 - Persons encountering health services in other specified circumstances CT thoracic spine wo IV con Today M43.24 - Fusion of spine, thoracic region, M54.9 - Dorsalgia, unspecified Medications: New lidocaine 5% leave on most painful area for up to 12 hrs 2 patches topical DAILY 30 ea 3RF 30 days fluticasone propionate 50 mcg/actuation administer into each nostril 1 spray intranasal BID 16 grams 0RF
--- OUTSIDE RECORDS SUMMARY | 2025-05-21 15:40 | XMS_ITS | Patient Health Record ---
Author Organization [facility] Address [address] [place] [address] Care Team Providers Care Weblogic Administrator Name Role Phone Ashley Arnett MD Primary Care Provider Unavaila Brandon Zaidi Unavailable [phone] Reason For Referral No Information Medications Medication SIG (Take, Route, Frequency, Duration) Notes Start Date End Date Status Ondansetron HCl 8 MG Oral; Duration: 3 Not-Taking oxyCODONE HCl 5 MG Oral; Duration: 30 Not-Taking predniSONE 50 MG Oral; Duration: 5 Not-Taking Zolpidem Tartrate 10 MG Oral; Duration: 30 Not-Taking Aleve 220 MG as directed Orally Not-Taking zzzCompression Stockings 20-30mm Hg . . .; Duration: . 02/10/2013 Not-Takin g Gabapentin 300 MG Oral; Duration: 30 Active Lidocaine-Prilocaine 2.5-2.5 % External; Duration: 30 Activ e LORazepam 0.5 MG Oral; Duration: 30 Active Meclizine HCl 25 MG Oral; Duration: 7 Active Metoclopramide HCl 10 MG Oral; Duration: 8 Not-Taking Social History Tobacco use other than smoking: Question Answer Notes Are you an other tobacco user? No Problems No Known Problems Plan Of Treatment Pending Test Test Name Order Date X ray : Foot, left 3V 08/08/2012 X ray : Foot, left 3V 11/26/2012 X ray : Foot, left 3V 12/02/2012 X ray : Foot, left 3V 12/23/201210386,[id number] TENDON SHEATH/LIGAMENT 0 07/05/201550,[id number] TENDON SHEATH/LIGAMENT 1 50,[id number] TENDON SHEATH/LIGAMENT 1 10/12/2014 Insurance Providers Payer Name Payer Address Payer Phone Subscriber Number Group Number Insured Name Patient Relationship to Insured Coverage Start Date Coverage End Date [facility] [id number] [place] [address] [id number] Wilbert Dave Self - patient is the insured Medical (General) History Medical History History ICD Code anxiety depression obesity lymphoma Surgical History Surgery Date(Month/Year) shoulder surgery - left 2007 shoulder surgery - right 2007 bone spur left foot 11/20/2012 back surgery 08/2013
--- OUTSIDE RECORDS SUMMARY | 2025-05-21 15:40 | XMS_ITS | Patient Health Record ---
Author Organization [facility] [place] Address [address] [place] [address] Care Team Providers Care Recreation Instructor Name Role Phone Migration, Provider Unavailable Unavailable Reason For Referral No Information Encounters Encounter Location Date Provider Diagnosis [facility] [place] [address] [address] 08/11/2024 Provider Migration [facility] [place] [address] [address] 08/26/2024 Provider Migration [facility], [address] [address] 09/01/2024 Provider Migration [facility] [place] [address] [address] 09/08/2024 Provider Migration [facility] [place] [address] [address] 09/09/2024 Provider Migration Plan Of Treatment No Information Insurance Providers Payer Name Payer Address Payer Phone Subscriber Number Group Number Insured Name Patient Relationship to Insured Coverage Start Date Coverage End Date [employer] Preferred [address] [place] [address] [id number] SOLOMON LEÓN Self - patient is the insured
[2025-05-21 15:41] VITALS: BP 148/82
== END 2025-05-21 16:15 | disposition home or self-care (01) ==
DX: M54.9 Dorsalgia, unspecified (principal); J30.9 Allergic rhinitis, unspecified; I10 Essential (primary) hypertension; M43.24 Fusion of spine, thoracic region

== ENCOUNTER → 2025-05-21 15:05 | Outpatient (BNVA) | payer BC, MEDICARE, SELFPAY | PROVIDERS: PCP Internal Medicine | DX: I10 Essential (primary) hypertension (principal); M54.50 Low back pain, unspecified; E78.5 Hyperlipidemia, unspecified; J30.9 Allergic rhinitis, unspecified; M54.9 Dorsalgia, unspecified; M43.24 Fusion of spine, thoracic region; E66.9 Obesity, unspecified; G89.29 Other chronic pain; Z76.89 Persons encountering health services in other specified circumstances; Z68.41 Body mass index [BMI] 40.0-44.9, adult; Z85.72 Personal history of non-Hodgkin lymphomas | CPT/HCPCS: 96127 ==

== ENCOUNTER 2025-09-02 07:20 | Outpatient (REF) | payer MEDICARE, BC, SELFPAY ==
--- OUTSIDE RECORDS SUMMARY | 2024-08-11 09:30 | XMS_ITS ---
Author Organization [facility], [place] Address [address] [facility] [address] [place] [address] Care Team Providers Care Facetor Name Role Phone Migration, Provider Unavailable Unavailable REASON FOR VISIT Sick Visit Encounters Encounter Location Date Provider Diagnosis [address] [place] [phone] 08/11/2024 Provider Migration Plan Of Treatment No Information Progress Notes * SHARAD LEÓNOB:1970 (54 yo M)Acc No.[id number]:08/11/2024 Progress Notes Patient: JER MARTINEZDDY Provider: Ann Leblanc :1970 A ge:53 Y S ex:Male Date:08/11/2024 Address:[address] [place], [place] [id number] Subjective: * Chief Complaints: * S ick Visit * Ocular Surgical History: Objective: Vision Examination: * Electronic signature of Prov ider Migration on 09/02/2025 at 07:23 AM EST Sign off status: Pending * Provider: Ann donahue Migration Date: 10/11/2023 Generated for Ad leal/Carlos/eTransmitting on: 11/02/2024 07:23 AM EST
--- OUTSIDE RECORDS SUMMARY | 2024-08-26 09:15 | XMS_ITS ---
Author Organization [facility], [place] Address [address] [facility] [address] [place] [address] Care Team Providers Care Business Development Specialist Name Role Phone Migration, Provider Unavailable Unavailable REASON FOR VISIT Follow-up Appt Encounters Encounter Location Date Provider Diagnosis [facility], [address] [place] [phone] 08/26/2024 Provider Migration Plan Of Treatment No Information Progress Notes * SHARAD LEÓNOB:1970 (54 yo M)Acc No.[id number]:08/26/2024 Progress Notes Patient: Kay NEALSOLOMON Provider: Ann donahue Migration :1970 A ge:53 Y S ex:Male Date:08/26/2024 Address:[address] [place], [place] [id number] Subjective: * Chief Complaints: * F ollow-up Appt * Ocular Surgical History: Objective: Vision Examination: * Electronic signature of Prov ider Migration on 09/02/2025 at 07:23 AM EST Sign off status: Pending * Provider: Ann donahue Migration Date: 10/26/2023 Generated for Ad leal/Carlos/eTbrunosmitting on: 11/02/2024 07:23 AM EST
--- OUTSIDE RECORDS SUMMARY | 2024-09-01 11:15 | XMS_ITS ---
Author Organization [facility], [place] Address [address] [facility] [address] [place] [address] Care Team Providers Care Systems Eng Name Role Phone Migration, Provider Unavailable Unavailable REASON FOR VISIT Follow-up Appt Encounters Encounter Location Date Provider Diagnosis [facility], [address] [place] [phone] 09/01/2024 Provider Migration Plan Of Treatment No Information Progress Notes * SHARAD LEÓNOB:1970 (54 yo M)Acc No.[id number]:09/01/2024 Progress Notes Patient: Kay NEALSOLOMON Provider: Ann donahue Migration :1970 A ge:53 Y S ex:Male Date:09/01/2024 Address:[address] [place], [place] [phone] Subjective: * Chief Complaints: * F ollow-up Appt * Ocular Surgical History: Objective: Vision Examination: * Electronic signature of Prov ider Migration on 09/02/2025 at 07:23 AM EST Sign off status: Pending * Provider: Ann donahue Migration Date: 11/01/2023 Generated for Ad leal/Carlos/eTbrunosmitting on: 11/02/2024 07:23 AM EST
--- OUTSIDE RECORDS SUMMARY | 2024-09-08 10:00 | XMS_ITS ---
Author Organization [facility], [place] Address [address] [facility] [address] [place] [address] Care Team Providers Care Senior Oracle Dba Name Role Phone Migration, Provider Unavailable Unavailable REASON FOR VISIT Follow-up Appt Encounters Encounter Location Date Provider Diagnosis [facility], [address] [place] [phone] 09/08/2024 Provider Migration Plan Of Treatment No Information Progress Notes * SHARAD LEÓNOB:1970 (54 yo M)Acc No.[id number]:09/08/2024 Progress Notes Patient: Kay NEALSOLOMON Provider: Ann donahue Migration :1970 A ge:53 Y S ex:Male Date:09/08/2024 Address:[address] [place], [place] [phone] Subjective: * Chief Complaints: * F ollow-up Appt * Ocular Surgical History: Objective: Vision Examination: * Electronic signature of Prov ider Migration on 09/02/2025 at 07:24 AM EST Sign off status: Pending * Provider: Ann donahue Migration Date: 11/09/2023 Generated for Ad leal/Carlos/eTbrunosmitting on: 11/02/2024 07:24 AM EST
--- OUTSIDE RECORDS SUMMARY | 2024-09-09 06:15 | XMS_ITS ---
Author Organization [facility], [place] Address [address] [facility] [address] [place] [address] Care Team Providers Care Mechanical Manufacturing Engineer Name Role Phone Migration, Provider Unavailable Unavailable REASON FOR VISIT Follow-up Appt Encounters Encounter Location Date Provider Diagnosis [facility], [address] [place] [phone] 09/09/2024 Provider Migration Plan Of Treatment No Information Progress Notes * SHARAD LEÓNOB:1970 (54 yo M)Acc No.[id number]:09/09/2024 Progress Notes Patient: Kay NEALSOLOMON Provider: Ann donahue Migration :1970 A ge:53 Y S ex:Male Date:09/09/2024 Address:[address] [place], [place] [phone] Subjective: * Chief Complaints: * F ollow-up Appt * Ocular Surgical History: Objective: Vision Examination: * Electronic signature of Prov ider Migration on 09/02/2025 at 07:23 AM EST Sign off status: Pending * Provider: Ann donahue Migration Date: 11/10/2023 Generated for Ad leal/Carlos/eTbrunosmitting on: 11/02/2024 07:23 AM EST
--- NOTE | ~2025-09-02 | CT_ITS ---
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 Mild anterior wedging of T6 and T8. There has been interbody fusion of T10 through T12. At the fused levels there is no retropulsion of the posterior vertebral body mac. There is diffuse sclerosis of the T11 vertebral body. At T9-10 there is a posterior disc osteophyte complex which results in mild central canal narrowing. There are some tiny tree-in-bud nodules in the posterior right lung. Upper abdominal contents unremarkable. IMPRESSION: Previous T10 through T12 interbody fusion. Tiny tree-in-bud nodules in the posterior right lung, which are nonspecific, and can be associated with infection, inflammation, immunologic and idiopathic disorders. This document has been electronically signed by: Vic Alanis MD on 09/09/2025 03:05:17
--- OUTSIDE RECORDS SUMMARY | 2025-09-02 07:23 | XMS_ITS | Patient Health Record ---
Author Organization [facility] [place] Address [address] [address] [place] [address] Care Team Providers Care Box Gluer Name Role Phone Migration, Provider Unavailable Unavailable Reason For Referral No Information Encounters Encounter Location Date Provider Diagnosis [facility] [address] [address] 09/08/[address] [facility] [address] [address] 09/09/2024 Provider Migration Plan Of Treatment No Information Insurance Providers Payer Name Payer Address Payer Phone Subscriber Number Group Number Insured Name Patient Relationship to Insured Coverage Start Date Coverage End Date [employer] Preferred [address] [place] [address] [id number] SOLOMON LEÓN Self - patient is the insured
--- OUTSIDE RECORDS SUMMARY | 2025-09-02 07:24 | XMS_ITS | Patient Health Record ---
Author Organization [facility] Address [address] [facility] [place] [address] Care Team Providers Care News Department Intern Name Role Phone Ashley Arnett MD Primary Care Provider Unavaila Brandon Zaidi Unavailable [phone] Reason For Referral No Information Medications Medication [...] 12/02/2012 X ray : Foot, left 3V 12/23/201217875,[id number] TENDON SHEATH/LIGAMENT 0 07/05/201550,[id number]-TVQ TENDON SHEATH/LIGAMENT 1 50,[id number]-EVO TENDON SHEATH/LIGAMENT 1 10/12/2014 Insurance Providers Payer Name Payer Address Payer Phone Subscriber Number Group Number Insured Name Patient Relationship to Insured Coverage Start Date Coverage End Date [facility] [id number] [place] [address] [id number] Wilbert Dave Self - patient is the insured Medical (General) History Medical History History ICD Code anxiety depression obesity lymphoma Surgical History Surgery Date(Month/Year) shoulder surgery - left 2007 shoulder surgery - right 2007 bone spur left foot 11/20/2012 back surgery 08/2013
== END 2025-09-02 07:21 | disposition home or self-care (01) ==
LOC: HO.CT 07:20
DX: M43.24 Fusion of spine, thoracic region (principal); M54.9 Dorsalgia, unspecified
CPT/HCPCS: 72128

== ENCOUNTER → 2025-09-02 07:23 | Outpatient (BNV) | payer MEDICARE, BC, SELFPAY | PROVIDERS: Visit Provider Radiology Diagnostic Radiology | DX: M43.24 Fusion of spine, thoracic region (principal) | CPT/HCPCS: 72128 ==